=== PATIENT | male | born 1955 | race Caucasian/White ===

== ENCOUNTER → 2017-02-21 | Outpatient (REF) | payer BC ==
[2017-02-26 00:06] LABS: RENIN LEVEL 0.4 ng/mL/hr (0.167-5.380)
== END ==
LOC: M LAB REF 13:09
PROVIDERS: ATTEND Internal Medicine
DX: E87.5 Hyperkalemia (principal)

== ENCOUNTER → 2018-05-20 | Outpatient (REF) | payer OTHER ==
[2018-05-20 14:19] LABS: INR 0.96; PROTHROMBIN TIME 12.9 SECONDS (12.1-14.4)
[2018-05-20 14:20] LABS: PARTIAL THROMBOPLASTIN TIME 29.7 SECONDS (25.4-37.6)
== END ==
LOC: M LAB REF 13:23
DX: Z01.818 Encounter for other preprocedural examination (principal)

== ENCOUNTER → 2018-05-23 | Outpatient (REF) | payer OTHER ==
[2018-05-23 13:27] LABS: APPEARANCE, URINE HAZY (CLEAR); BACTERIA, URINE AUTO NEGATIVE (NEGATIVE); BILIRUBIN, URINE AUTO NEGATIVE (NEGATIVE); BLOOD, URINE BLOOD 1+ (NEGATIVE); COLOR, URINE YELLOW (YELLOW); GLUCOSE, URINE (UA) AUTO NEGATIVE (NEGATIVE); KETONE, URINE AUTO NEGATIVE (NEGATIVE); LEUKOCYTE ESTERASE, URINE AUTO 1+ (NEGATIVE); MUCUS, URINE SMALL (NEGATIVE); NITRITE, URINE AUTO NEGATIVE (NEGATIVE); PROTEIN, URINE AUTO NEGATIVE (NEGATIVE); RBC, URINE AUTO 27 /HPF (0-3); SPECIFIC GRAVITY URINE AUTO 1.017 (1.002-1.035); SQUAMOUS EPITHELIAL CELL UR AU 0 /HPF (0-6); UROBILINOGEN, URINE AUTO 0.2 mg/dL (0.0-2.0); WBC, URINE AUTO 24 /HPF (0-3)
== END ==
LOC: M LAB REF 12:45
DX: Z01.818 Encounter for other preprocedural examination (principal)

== ENCOUNTER → 2021-06-21 | Outpatient (CLI) | payer OTHER ==
--- NOTE | 2021-06-21 10:01 | REP ---
INDICATION: PERSONAL HX OF MALIGNANT NEOPLASM OF PROSTATE COMPARISON: None. TECHNIQUE: Supine views of the abdomen and pelvis. FINDINGS: Bowel gas pattern is nonspecific and without obstruction or perforation. No organomegaly. Small focal grouping of calcifications in the left mid abdomen suggesting nonobstructing left nephroliths. Surgical clips in the right hemipelvis noted. Skeletal structures intact. IMPRESSION: Nonspecific examination. Suspected left renal calculi. <Electronically signed by Gordy Kenny > 06/21/21 0949
== END ==
LOC: M WUC 09:31
PROVIDERS: ATTEND Urology
DX: Z85.46 Personal history of malignant neoplasm of prostate (principal); Z97.8 Presence of other specified devices

== ENCOUNTER → 2022-12-20 | Outpatient (REF) | payer MEDICARE, OTHER | LOC: M LAB REF 10:29 | PROVIDERS: ATTEND Internal Medicine | DX: R53.83 Other fatigue (principal); G25.0 Essential tremor; I10 Essential (primary) hypertension ==

== ENCOUNTER 2023-01-04 20:08 | Emergency (ER) | payer MEDICARE, OTHER ==
[~2023-01-04] VITALS: Ht 170.2 cm; Wt 97.9 kg
[2023-01-04] MEDS ORDERED: PRIM50TA6 PO (20:17)
[2023-01-04] MEDS ORDERED: HYDR50TAB PO (20:17)
[2023-01-04] MEDS ORDERED: LANS30CA PO (20:17)
[2023-01-04 21:09] LABS: BASO # 0.1 10^3/uL (0.0-0.2); BASO % 0.3 % (0.0-1.0); EOS # 0.1 10^3/uL (0.0-0.5); EOS % 0.4 % (0.0-3.0); HEMATOCRIT 48.1 % (42.0-52.0); HEMOGLOBIN 16.2 g/dl (13.5-17.5); MEAN CORPUSCULAR HEMOGLOBIN 30.6 pg (27.0-33.0); MEAN CORPUSCULAR HGB CONC 33.7 g/dl (32.0-36.5); MEAN CORPUSCULAR VOLUME 90.8 fl (80.0-96.0); MONO # 0.8 10^3/uL (0.0-0.8); MONO % 5.3 % (2.0-8.0); NEUTROPHILS # 12.5 10^3/uL (1.5-8.5); NEUTROPHILS % 86.4 % (36.0-66.0); PLATELET COUNT, AUTOMATED 248 10^3/uL (150-450); WHITE BLOOD COUNT 14.4 10^3/uL (4.0-10.0)
[2023-01-04] MEDS ORDERED: MORPHINE 4 MG/ML 1ML VIAL IV ONE (21:10)
[2023-01-04] MEDS ORDERED: NS 500 ML IV ONE (21:10)
[2023-01-04] MEDS ORDERED: ONDANSETRON 4MG 2ML VIAL IV ONE (21:10)
[2023-01-04 21:31] LABS: CK-MB VALUE MASS < 1.0 NG/ML (<3.6)
[2023-01-04 21:32] LABS: LIPASE 53 U/L (12-53)
[2023-01-04 21:33] LABS: BLOOD UREA NITROGEN 16 MG/DL (9-23); CALCIUM LEVEL 9.5 MG/DL (8.3-10.6); CARBON DIOXIDE LEVEL 34 MMOL/L (20-31); CHLORIDE LEVEL 103 MMOL/L (98-107); CREATININE FOR GFR 0.92 MG/DL (0.70-1.30); GLOMERULAR FILTRATION RATE > 60.0 (>49); GLUCOSE, FASTING 131 MG/DL (74-106); POTASSIUM SERUM 3.8 MMOL/L (3.5-5.1); SODIUM LEVEL 140 MMOL/L (136-145)
[2023-01-04 21:35] LABS: CPK CREATINE PHOSPHOKINASE 74 U/L (46-171); MB/CK RELATIVE INDEX 1.35 (< OR =4)
[2023-01-04] MEDS ORDERED: ISOVUE-370 76% 100ML VIAL As Ordered ONE (21:56)
[2023-01-04 21:59] LABS: ALBUMIN 3.8 G/DL (3.2-5.2); ALKALINE PHOSPHATASE 99 U/L (46-116); ALT/SGPT 21 U/L (7.0-40); AST/SGOT 19 U/L (<34); BILIRUBIN,DIRECT 0.1 MG/DL (<0.4); BILIRUBIN,TOTAL 0.4 MG/DL (0.3-1.2); TOTAL PROTEIN 6.9 G/DL (5.7-8.2)
[2023-01-04 23:31] VITALS: BP 138/56
== END 2023-01-04 23:40 | disposition home or self-care (01) ==
LOC: M ED 20:08
DX: K80.50 Calculus of bile duct without cholangitis or cholecystitis without obstruction (principal); K21.9 Gastro-esophageal reflux disease without esophagitis; G25.0 Essential tremor; Z87.442 Personal history of urinary calculi; F17.200 Nicotine dependence, unspecified, uncomplicated; Z88.0 Allergy status to penicillin; Z88.5 Allergy status to narcotic agent
CPT/HCPCS: 74177; 80048; 80076; 82550; 82553; 83605; 83690; 84484; 85025; 93005; 96374; 96375; 99284; J2270; J2405; Q9967

== ENCOUNTER → 2023-02-01 | Outpatient (CLI) | payer MEDICARE ==
[~2023-02-01] MED LIST: HYDR50TAB PO; LANS30CA PO; PRIM50TA6 PO
== END ==
LOC: M RAD 06:58
PROVIDERS: ATTEND Internal Medicine
DX: K82.9 Disease of gallbladder, unspecified (principal); N20.0 Calculus of kidney

== ENCOUNTER 2023-03-18 07:24 | Day surgery (SDC) | payer MEDICARE ==
[~2023-03-18] VITALS: Ht 170.2 cm; Wt 94.3 kg
[~2023-03-18 07:24] MED LIST changes: +CelecoXIB 400 MG CAP PO ONE; +HYDR-3490 PO; +LIDOCAINE 2% 100MG/5ML SDV (FOR ANES.) As Ordered ONE; +LevoFLOXacin IV 750 MG in IV 1 EA IV ONE; +METOCLOPRAMIDE INJ 10MG/2ML VIAL As Ordered ONE; +MIDAZOLAM INJ 2MG/2ML VIAL As Ordered ONE; +OMEGCAP9 PO; +ONDANSETRON 4MG 2ML VIAL As Ordered ONE; +PRES10CA2 PO; +ROCURONIUM BROMIDE 50MG/5ML VIAL As Ordered ONE; +ROPI1TAB3 PO; +fentaNYL 100 MCG/2 ML INJECTION As Ordered ONE; +propofoL 200 MG/20 ML VIAL As Ordered ONE
[2023-03-18] MEDS ORDERED: LR 1,000 ML IV SCH ×2 (07:30→11:45)
[2023-03-18] MEDS ORDERED: INDOCYANINE GREEN 25MG VIAL (IC-GREEN) As Ordered ONE (09:26)
[2023-03-18] MEDS ORDERED: LIDOCAINE 1% SDV 30ML VIAL As Ordered ONE (09:26)
[2023-03-18] MEDS ORDERED: BUPIVACAINE HCL 0.25% 30ML VIAL As Ordered ONE (09:26)
[2023-03-18] MEDS ORDERED: fentaNYL 100 MCG/2 ML INJECTION As Ordered ONE (10:29)
[2023-03-18] MEDS ORDERED: LABETALOL 100MG/20ML VIAL As Ordered ONE (10:32)
[2023-03-18] MEDS ORDERED: KETOROLAC 60MG 2ML VIAL As Ordered ONE (10:50)
[2023-03-18] MEDS ORDERED: fentaNYL 100 MCG/2 ML INJECTION IV PRN (11:45)
[2023-03-18] MEDS ORDERED: ONDANSETRON 4MG 2ML VIAL IV PRN (11:45)
[2023-03-18] MEDS: HYDROMORPHONE HCL 0.5 MG/ 0.5 ML SYRINGE IV PRN ×4 (11:51→12:22)
[2023-03-18] MEDS: oxyCODONE 5MG TAB PO PRN ×2 (12:11→12:46)
[2023-03-18] MEDS ORDERED: SUGAMMADEX SODIUM 500 MG/5 ML VIAL (BRIDION) As Ordered ONE (13:11)
[2023-03-18 13:13] VITALS: BP 127/61
== END 2023-03-18 13:31 | disposition home or self-care (01) ==
LOC: M SDC 07:24
PROVIDERS: ATTEND Surgery
DX: K81.1 Chronic cholecystitis (principal); G47.33 Obstructive sleep apnea (adult) (pediatric); K21.9 Gastro-esophageal reflux disease without esophagitis; R25.1 Tremor, unspecified; Z85.46 Personal history of malignant neoplasm of prostate; Z79.899 Other long term (current) drug therapy; F17.210 Nicotine dependence, cigarettes, uncomplicated; Z88.0 Allergy status to penicillin; Z88.5 Allergy status to narcotic agent; Z88.8 Allergy status to other drugs, medicaments and biological substances
CPT/HCPCS: 47562; 88304; J1100; J1170; J1885; J1956; J2250; J2405; J2765; J3010; Q9968; S2900

== ENCOUNTER → 2024-07-07 | Outpatient (CLI) | payer MEDICARE ==
[~2024-07-07] MED LIST changes: -CelecoXIB 400 MG CAP PO ONE; -LIDOCAINE 2% 100MG/5ML SDV (FOR ANES.) As Ordered ONE; -LevoFLOXacin IV 750 MG in IV 1 EA IV ONE; -METOCLOPRAMIDE INJ 10MG/2ML VIAL As Ordered ONE; -MIDAZOLAM INJ 2MG/2ML VIAL As Ordered ONE; -ONDANSETRON 4MG 2ML VIAL As Ordered ONE; +PRAM1.5T2 PO; +PRIM250T8 PO; +PROP20TA72 PO; -ROCURONIUM BROMIDE 50MG/5ML VIAL As Ordered ONE; -ROPI1TAB3 PO; +ROPI1TAB73 PO; -fentaNYL 100 MCG/2 ML INJECTION As Ordered ONE; -propofoL 200 MG/20 ML VIAL As Ordered ONE
== END ==
LOC: M RAD 08:03
PROVIDERS: ATTEND Nurse Practitioner Family
DX: N20.0 Calculus of kidney (principal); Z85.46 Personal history of malignant neoplasm of prostate

== ENCOUNTER → 2025-02-10 | Outpatient (REF) | payer MEDICARE ==
[2025-02-12 18:27] LABS: PHENOBARBITAL (PRIMIDONE) 14.7 mg/L (15.0-40.0)
== END ==
LOC: M LAB REF 12:21
PROVIDERS: ATTEND Internal Medicine
DX: G25.0 Essential tremor (principal)

== ENCOUNTER → 2025-07-10 | Outpatient (CLI) | payer MEDICARE | LOC: M RAD 08:30 | PROVIDERS: ATTEND Physician Assistant Medical | DX: N20.0 Calculus of kidney (principal); Z85.46 Personal history of malignant neoplasm of prostate ==